=== PATIENT | male | born 1965 | race Caucasian/White ===

== ENCOUNTER 2016-10-03 14:16 | Emergency (ER) | payer OTHER ==
[~2016-10-03] VITALS: Ht 182.9 cm; Wt 57.0 kg
[~2016-10-03 14:16] MED LIST: LORT5TAB PO
--- NOTE | 2016-10-03 15:43 | PD ---
HPI Chief Complaint: Psychiatric Symptoms Time Seen by Provider: 15:42 Travel History International Travel<30 days: No Contact w/Intl Traveler<30days: No History of Present Illness HPI 50-year-old male patient presents to the emergency department via [place] police under the Dominguez act. Patient states she was recently told that he had hepatitis C, and now he no longer wants to live. When was to walk in front of traffic. Patient was placed under [employer] act and brought in for evaluation and treatment. Patient has no specific acute complaints at this time. Patient has history of recurrent MRSA as well but nothing currently. He was just released from [facility] after medical treatment that establishment. He currently has no known drug allergies. He is intoxicated. [facility] Past Medical History Diminished Hearing: No Hepatitis: Yes ("C") Hypertension: Yes Immunizations Current: Yes Past Surgical History Abdominal Surgery: Yes (HERNIA REPAIR) Social History Alcohol Use: Yes Tobacco Use: Yes Substance Use: Yes Allergies-Medications (Allergen,Severity, Reaction): Coded Allergies: No Known Allergies (Verified Allergy, Mild, 10/12/07) Reported Meds & Prescriptions Reported Meds & Active Scripts Active Lortab 5/500 (Acetaminophen/Hydrocodone Bitart) 5 Mg/500 Mg Tab 1 Tab PO Q4- 6HPRN FOR PAIN Review of Systems ROS Limitations: Intoxication Except as stated in HPI: all other systems reviewed are Neg General / Constitutional: No: Fever Eyes: No: Visual changes HENT: No: Headaches Cardiovascular: No: Chest Pain or Discomfort Respiratory: No: Shortness of Breath Gastrointestinal: No: Abdominal Pain Genitourinary: No: Dysuria Musculoskeletal: No: Pain Skin: No Rash Neurologic: No: Weakness Psychiatric: No: Depression Endocrine: No: Polydipsia Hematologic/Lymphatic: No: Easy Bruising Physical Exam Exam Limitations: Intoxication Narrative GENERAL: Patient appears intoxicated but in no acute distress. He is talkative and pleasant. SKIN: Warm and dry. Normal color. Normal turgor. No active cellulitic lesions noted. Patient has scarring to both anterior thighs HEAD: Atraumatic. Normocephalic. EYES: Pupils equal and round. No scleral icterus. No injection or drainage. ENT: No nasal bleeding or discharge. Mucous membranes pink and moist. Thanks is clear. Airway is patent. NECK: Trachea midline. Upon nontender. CARDIOVASCULAR: Regular rate and rhythm. RESPIRATORY: No accessory muscle use. Clear to auscultation. Breath sounds equal bilaterally. GASTROINTESTINAL: Abdomen soft, non-tender, nondistended. Hepatic and splenic margins not palpable. MUSCULOSKELETAL: Extremities without clubbing, cyanosis, or edema. No obvious deformities. NEUROLOGICAL: Awake and alert. No obvious cranial nerve deficits. Motor grossly within normal limits. Five out of 5 muscle strength in the arms and legs. Normal speech. PSYCHIATRIC: Appropriate mood and affect; insight and judgment normal. Data Data Last Documented VS Vital Signs Date Time Temp Pulse Resp B/P Pulse Ox O2 Delivery O2 Flow Rate FiO2 10/03/16 15:46 98.4 75 16 129/72 Orders Complete Blood Count With Diff (10/03/16 15:43) Comprehensive Metabolic Panel (10/03/16 15:43) Urinalysis - C+S If Indicated (10/03/16 15:43) Psych Screen (10/03/16 15:43) Drug Screen, Random Urine (10/03/16 15:43) Alcohol (Ethanol) (10/03/16 15:43) Alcohol Withdrawal Asmt-Ciwa Q4HX18 (10/03/16 15:43) Flumazenil Inj (Romazicon Inj) (10/03/16 15:45) Lorazepam (Ativan) (10/03/16 15:45) Lorazepam Inj (Ativan Inj) (10/03/16 15:45) Lorazepam (Ativan) (10/03/16 15:45) Lorazepam Inj (Ativan Inj) (10/03/16 15:45) Lorazepam Inj (Ativan Inj) (10/03/16 15:45) Lorazepam Inj (Ativan Inj) (10/03/16 15:45) Labs Laboratory Tests Test 10/03/16 10/03/16 15:50 16:00 Urine Color YELLOW Urine Turbidity CLEAR Urine pH 6.0 Urine Specific [place] 1.007 Urine Protein NEG mg/dL Urine Glucose (UA) NEG mg/dL Urine Ketones NEG mg/dL Urine Occult Blood NEG Urine Nitrite NEG Urine Bilirubin NEG Urine Urobilinogen LESS THAN 2.0 MG/DL Urine Leukocyte Esterase NEG Urine WBC LESS THAN 1 /hpf Urine Squamous Epithelial <1 /hpf Cells Urine Transitional Epithelial <1 /hpf Cells Microscopic Urinalysis Comment CULT NOT INDICATED White Blood Count 4.8 TH/MM3 Red Blood Count 3.76 MIL/MM3 Hemoglobin 14.5 GM/DL Hematocrit 41.0 % Mean Corpuscular Volume 109.1 FL Mean Corpuscular Hemoglobin 38.4 PG Mean Corpuscular Hemoglobin 35.2 % Concent Red Cell Distribution Width 13.9 % Platelet Count 78 TH/MM3 Mean Platelet Volume 8.6 FL Neutrophils (%) (Auto) 29.3 % Lymphocytes (%) (Auto) 56.5 % Monocytes (%) (Auto) 11.7 % Eosinophils (%) (Auto) 1.6 % Basophils (%) (Auto) 0.9 % Neutrophils # (Auto) 1.4 TH/MM3 Lymphocytes # (Auto) 2.7 TH/MM3 Monocytes # (Auto) 0.6 TH/MM3 Eosinophils # (Auto) 0.1 TH/MM3 Basophils # (Auto) 0.0 TH/MM3 CBC Comment AUTO DIFF Differential Comment AUTO DIFF CONFIRMED Platelet Estimate LOW Sodium Level 136 MEQ/L Potassium Level 4.0 MEQ/L Chloride Level 100 MEQ/L Carbon Dioxide Level 26.1 MEQ/L Anion Gap 10 MEQ/L Blood Urea Nitrogen 8 MG/DL Creatinine 0.59 MG/DL Estimat Glomerular Filtration 145 ML/MIN Rate Random Glucose 76 MG/DL Calcium Level 9.0 MG/DL Total Bilirubin 0.6 MG/DL Aspartate Amino Transf 203 U/L (AST/SGOT) Alanine Aminotransferase 91 U/L (ALT/SGPT) Alkaline Phosphatase 88 U/L Total Protein 8.1 GM/DL Albumin 3.5 GM/DL Ethyl Alcohol Level 334 MG/DL [facility] Medical Decision Making Medical Screen Exam Complete: Yes Emergency Medical Condition: Yes Medical Record Reviewed: Yes Differential Diagnosis Dominguez act. Depression. Alcohol abuse. Hepatitis C. Suicidal ideation. Narrative Course Patient is intoxicated but in no acute distress. Psychiatric labs ordered per protocol. CBC is unremarkable. CMP is significant for AST of 203 and ALT of 91. Otherwise no significant findings. Serum alcohol is 334 at 1600 hrs. Urinalysis is unremarkable. CIWA protocol is put in place. Patient is given a meal. Patient is medically clear for psychiatric evaluation. Diagnosis Primary Impression: Medical clearance for psychiatric admission Additional Impressions: Alcohol intoxication Qualified Code: F10.920 - Alcoholic intoxication without complication Suicidal ideation Condition: Stable Kyle Mobley Oct 03, 2016 15:43
[2016-10-03] MEDS ORDERED: LORazepam 2 MG/ML VIAL IV PUSH PRN ×4 (15:45)
[2016-10-03] MEDS ORDERED: FLUMAZENIL 0.5 MG/5 ML VIAL IV PUSH PRN (15:45)
[2016-10-03] MEDS ORDERED: LORazepam 1 MG TAB PO PRN (15:45)
[2016-10-03 15:46] VITALS: BP 129/72; PULSE 75; RESP 16; TEMP 98.4
[2016-10-03 16:47] LABS: AUTOMATED NEUTROPHIL # 1.4 TH/MM3 (1.8-7.7); BASOPHIL % 0.9 % (0.0-2.0); EOSINOPHIL # 0.1 TH/MM3 (0-0.4); EOSINOPHIL % 1.6 % (0.0-4.0); LYMPH % 56.5 % (9.0-44.0); LYMPHOCYTE # 2.7 TH/MM3 (1.0-4.8); MEAN CELL VOLUME 109.1 FL (80.0-100.0); MEAN CORPUSCULAR HEMOGLOBIN 38.4 PG (27.0-34.0); MEAN CORPUSCULAR HGB CONC 35.2 % (32.0-36.0); MONO % 11.7 % (0.0-8.0); NEUT % 29.3 % (16.0-70.0); PLATELET COUNT 78 TH/MM3 (150-450); RED BLOOD COUNT 3.76 MIL/MM3 (4.50-5.90); RED CELL DISTRIBUTION WIDTH 13.9 % (11.6-17.2); WHITE BLOOD COUNT 4.8 TH/MM3 (4.0-11.0)
[2016-10-03 16:50] LABS: HEMO FLAGS AUTO DIFF
[2016-10-03 16:53] LABS: BLOOD, URINE NEG (NEG); COMMENT (UR) CULT NOT INDICATED; CULTURE IF INDICATED CULT NOT INDICATED; GLUCOSE,URINE NEG (NEG); KETONE, URINE NEG (NEG); NITRITE,URINE NEG (NEG); SQUAMOUS EPITHELIAL CELL URINE <1 /hpf (0-5); TRANSITIONAL EPI CELLS, URINE <1 /hpf; URINE COLOR YELLOW (YELLW/STRAW)
[2016-10-03 17:17] LABS: ANION GAP 10 MEQ/L (5-15); AST (GOT) 203 U/L (15-37); BICARBONATE 26.1 MEQ/L (21.0-32.0); BLOOD UREA NITROGEN 8 MG/DL (7-18); CHLORIDE 100 MEQ/L (98-107); GLOMERULAR FILTRATION RATE 145 ML/MIN (>89); SODIUM (NA) 136 MEQ/L (136-145)
[2016-10-03 17:23] LABS: ALKALINE PHOSPHATASE 88 U/L (45-117); ALT (GPT) 91 U/L (12-78); TOTAL BILIRUBIN ADULT 0.6 MG/DL (0.2-1.0)
[2016-10-03 17:24] LABS: PLATELET ESTIMATE SMEAR LOW (NORMAL); SCAN/DIFF AUTO DIFF CONFIRMED
[2016-10-03 17:30] LABS: ALCOHOL 334 MG/DL (0-5)
[2016-10-04 07:15] VITALS: BP 143/82; PULSE 71; RESP 16; O2SAT 96
[2016-10-04 10:30] VITALS: BP 141/83; PULSE 71; RESP 18
[2016-10-04] MEDS: LORazepam 2 MG TAB PO PRN ×2 (10:30→12:20)
--- NOTE | 2016-10-04 14:01 | PD ---
History of Present Illness Chief Complaint: Psychiatric Symptoms Time Seen by Provider: 13:30 Travel History International Travel<30 Days: No Contact w/Intl Traveler<30days: No Known affected area: No Legal Status Legal Status: Dominguez Act Dominguez Act Signed By: Danielito Aden History of Present Illness: History of Present Illness HPI 50-year-old male with history of alcohol dependence who presents to the emergency department under the Dominguez act initiated by VERNA. Patient states she was recently told that he had hepatitis C, and now he no longer wants to live and would walk in front of traffic. he did not make any attempt at harming himself. He is intoxicated with BAL of 334 EMR is reviewed. he has several ed visits for alcohol related issues. No inpatient hospitalizations. Patient is allowed to sober up in safe environment. This morning he is alert adn oriented. he is clinically sober. He states that he drinks every day and has been doing so " for years". He has no intention of abstaining from use of alcohol. He reports he was arrested approximately 6 months ago and was sent to [facility] for detox. " I drank the next day I was home". The patient with no psychosis and no rudolph. No suicidal or homicidal ideation .He indicates that he has a friend by the [place] " that watches over me and helps to keep me safe". PFSH Past Medical History Diminished Hearing: No Hepatitis: Yes ("C") Hypertension: Yes Immunizations Current: Yes Past Surgical History Abdominal Surgery: Yes (HERNIA REPAIR) Psychiatric History Psychiatric History Hx Psychiatric Treatment: NONE History of Inpatient Treatment: No Guns or firearms in home: No Social History Single male. Lives in the [facility] in [facility] [place]. works side jobs. Has one daughter in the area. Hx Alcohol Use: Yes Hx Tobacco Use: Yes Hx Substance Use: Yes Substance Use Type: Alcohol Hx of Substance Use Treatment: Yes (Multiple detox visits. ) Family Psychiatric History Negative Allergies-Medications (Allergen,Severity, Reaction): Coded Allergies: No Known Allergies (Verified Allergy, Mild, 10/12/07) Reported Meds & Prescriptions Reported Meds & Active Scripts Active Lortab 5/500 (Acetaminophen/Hydrocodone Bitart) 5 Mg/500 Mg Tab 1 Tab PO Q4- 6HPRN FOR PAIN Review of Systems Constitutional: COMPLAINS OF: Weight loss Gastrointestinal: COMPLAINS OF: Nausea Exam Alert: Yes [place]: Person (ox4) Mood: Calm Affect: Appropriate Speech: Clear, Logical Eye Contact: Normal Memory Intact: Comment (no impairmetn) Hallucinations: Other (negative) Delusions: No Suicidal: Ideation (Negative) Homicidal: Ideation (Negative) Insight/Judgement Poor. Poor MDM Medical Decision Making Medical Record Reviewed: Yes Assessment/Plan 50-year-old male with history of alcohol dependence who presents to the emergency department under the Dominguez act initiated by VERNA. Patient states she was recently told that he had hepatitis C, and now he no longer wants to live and would walk in front of traffic. Patient intoxicated at the time he made statements. Patient was allowed to sober up clinically and was placed under CIWA protocol.At this time he is clinically sober.No suicidal l or homicidal plan, ideation, intent Has a friend who is supportive. He is counseled on abstinence and encouraged AA attendance. Orders Complete Blood Count With Diff (10/03/16 15:43) Comprehensive Metabolic Panel (10/03/16 15:43) Urinalysis - C+S If Indicated (10/03/16 15:43) Psych Screen (10/03/16 15:43) Drug Screen, Random Urine (10/03/16 15:43) Alcohol (Ethanol) (10/03/16 15:43) Alcohol Withdrawal Asmt-Ciwa Q4HX18 (10/03/16 15:43) Flumazenil Inj (Romazicon Inj) (10/03/16 15:45) Lorazepam (Ativan) (10/03/16 15:45) Lorazepam Inj (Ativan Inj) (10/03/16 15:45) Lorazepam (Ativan) (10/03/16 15:45) Lorazepam Inj (Ativan Inj) (10/03/16 15:45) Lorazepam Inj (Ativan Inj) (10/03/16 15:45) Lorazepam Inj (Ativan Inj) (10/03/16 15:45) Diet Regular Basic (10/03/16 Dinner) Diet Regular Basic (10/04/16 Breakfast) Diet Regular Basic (10/04/16 Lunch) Results Vital Signs Date Time Temp Pulse Resp B/P Pulse Ox O2 Delivery O2 Flow Rate FiO2 10/04/16 10:30 71 18 141/83 Room Air 10/04/16 07:15 71 16 143/82 96 Room Air 10/03/16 15:46 98.4 75 16 129/72 Laboratory Tests Test 10/03/16 10/03/16 15:50 16:00 Urine Color YELLOW Urine Turbidity CLEAR Urine pH 6.0 Urine Specific [place] 1.007 Urine Protein NEG Urine Glucose (UA) NEG Urine Ketones NEG Urine Occult Blood NEG Urine Nitrite NEG Urine Bilirubin NEG Urine Urobilinogen LESS THAN 2.0 Urine Leukocyte Esterase NEG Urine WBC LESS THAN 1 Urine Squamous Epithelial <1 Cells Urine Transitional Epithelial <1 Cells Microscopic Urinalysis Comment CULT NOT INDICATED Urine Opiates Screen NEG Urine Barbiturates Screen NEG Urine Amphetamines Screen NEG Urine Benzodiazepines Screen NEG Urine Cocaine Screen NEG Urine Cannabinoids Screen NEG White Blood Count 4.8 Red Blood Count 3.76 Hemoglobin 14.5 Hematocrit 41.0 Mean Corpuscular Volume 109.1 Mean Corpuscular Hemoglobin 38.4 Mean Corpuscular Hemoglobin 35.2 Concent Red Cell Distribution Width 13.9 Platelet Count 78 Mean Platelet Volume 8.6 Neutrophils (%) (Auto) 29.3 Lymphocytes (%) (Auto) 56.5 Monocytes (%) (Auto) 11.7 Eosinophils (%) (Auto) 1.6 Basophils (%) (Auto) 0.9 Neutrophils # (Auto) 1.4 Lymphocytes # (Auto) 2.7 Monocytes # (Auto) 0.6 Eosinophils # (Auto) 0.1 Basophils # (Auto) 0.0 CBC Comment AUTO DIFF Differential Comment AUTO DIFF CONFIRMED Platelet Estimate LOW Sodium Level 136 Potassium Level 4.0 Chloride Level 100 Carbon Dioxide Level 26.1 Anion Gap 10 Blood Urea Nitrogen 8 Creatinine 0.59 Estimat Glomerular Filtration 145 Rate Random Glucose 76 Calcium Level 9.0 Total Bilirubin 0.6 Aspartate Amino Transf 203 (AST/SGOT) Alanine Aminotransferase 91 (ALT/SGPT) Alkaline Phosphatase 88 Total Protein 8.1 Albumin 3.5 Ethyl Alcohol Level 334 Diagnosis Primary Impression: Alcohol dependence Additional Impressions: Alcohol intoxication Medical clearance for psychiatric admission Psychiatrically Cleared: Yes Departure Forms: Tests/Procedures Patient Instructions: General Instructions, Alcohol Intoxication (ED), Abuse of Alcohol (ED), Alcohol Dependence (ED) Additional Instructions: DISCHARGE HOME DIAGNOSIS ALCOHOL DEPENDENCE AND ABUSE FOLLOW-UP WITH [facility] NEEDED FOR DETOX RETURN TO ED FOR WORSENING PROBLEMS Med/ Other Pt Specific Info: No Meds Exist/No RX given Disposition: 01 DISCHARGE HOME Condition: Stable Problem Qualifiers Primary Impression: Alcohol dependence Qualified Code: F10.220 - Alcohol dependence with uncomplicated intoxication Additional Impressions: Alcohol intoxication Qualified Code: F10.920 - Alcoholic intoxication without complication Savanah Denise Oct 04, 2016 14:01
[2016-10-04 14:53] VITALS: BP 140/68; PULSE 73; RESP 20
[2016-10-04 14:54] VITALS: BP 140/63
== END 2016-10-04 15:19 | disposition home or self-care (01) ==
LOC: NEPD 14:16 → NEPJ 10-04 15:19
DX: F10.229 Alcohol dependence with intoxication, unspecified (principal); B19.20 Unspecified viral hepatitis C without hepatic coma; I10 Essential (primary) hypertension; Z72.0 Tobacco use; Z79.899 Other long term (current) drug therapy
CPT/HCPCS: 80053; 80307; 81001; 85025; 96374

== ENCOUNTER 2017-03-30 09:24 | Emergency (ER) | payer SELFPAY ==
[~2017-03-30] VITALS: Ht 177.8 cm; Wt 80.0 kg
[2017-03-30 09:38] VITALS: BP 116/64; PULSE 108; RESP 20; TEMP 98.2; O2SAT 99
--- NOTE | 2017-03-30 09:38 | PD ---
HPI Chief Complaint: [place] Act/Intoxication Time Seen by Provider: 09:32 Travel History International Travel<30 days: No Contact w/Intl Traveler<30days: No History of Present Illness HPI 51-year-old homeless gentleman presents to the emergency department via police under the Dominguez act for reports of public intoxication and threatening other homeless [place] residents with bodily harm. Patient denies that he would hurt anyone, and/or suicidal ideation. He is heavily intoxicated with alcohol. He has no medical complaints. He has no known drug allergies. PFS Past Medical History Diminished Hearing: No Hepatitis: Yes ("C") Hypertension: Yes Immunizations Current: Yes Past Surgical History Abdominal Surgery: Yes (HERNIA REPAIR) Social History Alcohol Use: Yes Tobacco Use: Yes Substance Use: Yes Allergies-Medications (Allergen,Severity, Reaction): Coded Allergies: No Known Allergies (Verified Allergy, Mild, 03/30/17) Reported Meds & Prescriptions Reported Meds & Active Scripts Active No Active Prescriptions or Reported Medications Review of Systems ROS Limitations: Intoxication, Poor Historian Except as stated in HPI: all other systems reviewed are Neg General / Constitutional: No: Fever Eyes: No: Visual changes HENT: No: Headaches Cardiovascular: No: Chest Pain or Discomfort Respiratory: No: Shortness of Breath Gastrointestinal: No: Abdominal Pain Genitourinary: No: Dysuria Musculoskeletal: No: Pain Skin: No Rash Neurologic: No: Weakness Psychiatric: No: Depression Endocrine: No: Polydipsia Hematologic/Lymphatic: No: Easy Bruising Physical Exam Exam Limitations: Intoxication, Poor Historian Narrative GENERAL: Patient appears disheveled and intoxicated, but in no obvious distress. He is cooperative with nursing staff. SKIN: Warm and dry. Normal color. Decreased turgor with tenting present. HEAD: Atraumatic. Normocephalic. EYES: Pupils equal and round. No scleral icterus. No injection or drainage. ENT: No nasal bleeding or discharge. Mucous membranes pink and moist. Teeth are in poor repair but otherwise no acute findings. Oropharynx is clear. Airway is patent NECK: Trachea midline. Supple and nontender. CARDIOVASCULAR: Regular rate and rhythm. No murmurs gallops or rubs. RESPIRATORY: No accessory muscle use. Clear to auscultation. Breath sounds equal bilaterally. GASTROINTESTINAL: Abdomen soft, non-tender, nondistended. Hepatic and splenic margins not palpable. MUSCULOSKELETAL: Extremities without clubbing, cyanosis, or edema. No obvious deformities. NEUROLOGICAL: Awake and alert. No obvious cranial nerve deficits. Motor grossly within normal limits. Five out of 5 muscle strength in the arms and legs. Normal speech. PSYCHIATRIC: Appropriate mood and affect; insight and judgment normal. Data Data Last Documented VS Vital Signs Date Time Temp Pulse Resp B/P (MAP) Pulse Ox O2 Delivery O2 Flow Rate FiO2 03/30/17 15:30 64 16 116/82 (93) 97 Room Air 03/30/17 09:38 98.2 Orders Orders Complete Blood Count With Diff (03/30/17 09:33) Comprehensive Metabolic Panel (03/30/17 09:33) Thyroid Stimulating Hormone (03/30/17 09:33) Urinalysis - C+S If Indicated (03/30/17 09:33) Sodium Chloride 0.9% Flush (Ns Flush) (03/30/17 09:45) Haloperidol Inj (Haldol Inj) (03/30/17 09:45) Lorazepam Inj (Ativan Inj) (03/30/17 09:45) Drug Screen, Random Urine (03/30/17 09:33) Alcohol (Ethanol) (03/30/17 09:33) Diphenhydramine Inj (Benadryl Inj) (03/30/17 09:45) Diphenhydramine Inj (Benadryl Inj) (03/30/17 09:45) Lorazepam Inj (Ativan Inj) (03/30/17 09:45) Haloperidol Inj (Haldol Inj) (03/30/17 09:45) Ondansetron Inj (Zofran Inj) (03/30/17 09:45) Thiamine Inj (Thiamine Inj) (03/30/17 09:45) Sodium Chlor 0.9% 1000 Ml Inj (Ns 1000 M (03/30/17 09:45) Alcohol Withdrawal Asmt-Ciwa Q4HX18 (03/30/17 09:51) Flumazenil Inj (Romazicon Inj) (03/30/17 10:00) Lorazepam (Ativan) (03/30/17 10:00) Lorazepam Inj (Ativan Inj) (03/30/17 10:00) Lorazepam (Ativan) (03/30/17 10:00) Lorazepam Inj (Ativan Inj) (03/30/17 10:00) Lorazepam Inj (Ativan Inj) (03/30/17 10:00) Lorazepam Inj (Ativan Inj) (03/30/17 10:00) Sodium Chlor 0.9% 1000 Ml Inj (Ns 1000 M (03/30/17 11:30) Ed Discharge Order (03/30/17 16:40) Labs Laboratory Tests Test 03/30/17 10:15 03/30/17 14:15 White Blood Count 11.2 TH/MM3 Red Blood Count 3.96 MIL/MM3 Hemoglobin 15.3 GM/DL Hematocrit 42.6 % Mean Corpuscular Volume 107.4 FL Mean Corpuscular Hemoglobin 38.7 PG Mean Corpuscular Hemoglobin Concent 36.0 % Red Cell Distribution Width 12.9 % Platelet Count 154 TH/MM3 Mean Platelet Volume 8.1 FL Neutrophils (%) (Auto) 36.6 % Lymphocytes (%) (Auto) 52.1 % Monocytes (%) (Auto) 9.1 % Eosinophils (%) (Auto) 0.7 % Basophils (%) (Auto) 1.5 % Neutrophils # (Auto) 4.1 TH/MM3 Lymphocytes # (Auto) 5.8 TH/MM3 Monocytes # (Auto) 1.0 TH/MM3 Eosinophils # (Auto) 0.1 TH/MM3 Basophils # (Auto) 0.2 TH/MM3 CBC Comment AUTO DIFF Differential Total Cells Counted 100 Neutrophils % (Manual) 46 % Lymphocytes % 44 % Monocytes % 7 % Basophils % 3 % Neutrophils # (Manual) 5.2 TH/MM3 Differential Comment FINAL DIFF MANUAL Platelet Estimate NORMAL Platelet Morphology Comment NORMAL Spherocytes OCC Blood Urea Nitrogen 24 MG/DL Creatinine 0.81 MG/DL Random Glucose 49 MG/DL Total Protein 8.9 GM/DL Albumin 4.2 GM/DL Calcium Level 10.1 MG/DL Alkaline Phosphatase 63 U/L Aspartate Amino Transf (AST/SGOT) 83 U/L Alanine Aminotransferase (ALT/SGPT) 56 U/L Total Bilirubin 0.5 MG/DL Sodium Level 140 MEQ/L Potassium Level 4.0 MEQ/L Chloride Level 106 MEQ/L Carbon Dioxide Level 18.4 MEQ/L Anion Gap 16 MEQ/L Estimat Glomerular Filtration Rate 100 ML/MIN Thyroid Stimulating Hormone 3rd Gen 1.410 uIU/ML Ethyl Alcohol Level 329 MG/DL Urine Color LIGHT-YELLOW Urine Turbidity CLEAR Urine pH 5.5 Urine Specific [place] 1.007 Urine Protein NEG mg/dL Urine Glucose (UA) NEG mg/dL Urine Ketones TRACE mg/dL Urine Occult Blood NEG Urine Nitrite NEG Urine Bilirubin NEG Urine Urobilinogen LESS THAN 2.0 MG/DL Urine Leukocyte Esterase NEG Urine RBC LESS THAN 1 /hpf Urine WBC 1 /hpf Urine Squamous Epithelial Cells <1 /hpf Microscopic Urinalysis Comment CULT NOT INDICATED Urine Opiates Screen NEG Urine Barbiturates Screen NEG Urine Amphetamines Screen NEG Urine Benzodiazepines Screen NEG Urine Cocaine Screen NEG Urine Cannabinoids Screen NEG MDM Medical Decision Making Medical Screen Exam Complete: Yes Emergency Medical Condition: Yes Medical Record Reviewed: Yes Differential Diagnosis Intoxication. Dominguez act. Aggressive behavior. Narrative Course Patient is intoxicated but appears medically stable at time of exam per Labs ordered per psychiatric protocol. IV access is obtained the patient is given 1 mg lorazepam IV as well as 2 mg Haldol IV as well as 50 mg diphenhydramine IV. Patient is given 1000 mL normal saline bolus as well as 100 mg thiamine IV. CBC shows WBC of 11.2, otherwise no significant findings. Chemistries significant for carbon dioxide of 18.4, anion gap of 16, BUN of 24, creatinine is 0.81 Glucose is low at 49, AST 83, total protein 8.9. Patient is given to orange juices for his sugar. Serum alcohol is 329. Patient is placed on the CIWA protocol. 1620 hrs. patient is alert and awake and eating his lunch. Blood sugar previous to lunch was 94. Dr. Garcia went to interview the patient to perhaps lift his Dominguez act. Patient is felt to be stable for discharge, and Dr. Garcia lifted the Dominguez act. Patient is referred to [facility] for follow-up. Diagnosis Primary Impression: Alcohol intoxication Qualified Codes: F10.920 - Alcohol use, unspecified with intoxication, uncomplicated Referrals: [facility] Patient Instructions: Abuse of Alcohol (ED), General Instructions Med/Other Pt SpecificInfo: No Meds Exist/No RX given Scripts No Active Prescriptions or Reported Meds Disposition: DISCHARGE HOME Condition: Stable Kyle Mobley Mar 30, 2017 09:38
[2017-03-30] MEDS ORDERED: LORazepam 2 MG/ML VIAL IM ONE (09:45)
[2017-03-30] MEDS ORDERED: diphenhydrAMINE HCL 50 MG/ML VIAL IV PUSH ONE (09:45)
[2017-03-30] MEDS ORDERED: HALOPERIDOL LACTATE 5 MG/ML AMP IM ONE (09:45)
[2017-03-30] MEDS ORDERED: HALOPERIDOL LACTATE 5 MG/ML AMP IV PUSH ONE (09:45)
[2017-03-30] MEDS ORDERED: SODIUM CHLORIDE 0.9% FLUSH 10 ML FLUSH IVF PRN (09:45)
[2017-03-30] MEDS ORDERED: LORazepam 2 MG/ML VIAL IV PUSH ONE (09:45)
[2017-03-30] MEDS ORDERED: THIAMINE INJ 100 MG in SODIUM CHLORIDE 0.9% INJ 100 ML IV ONE (09:45)
[2017-03-30] MEDS ORDERED: SODIUM CHLOR 0.9% 1000 ML INJ 1,000 ML IV ONE ×2 (09:45→11:30)
[2017-03-30] MEDS ORDERED: ONDANSETRON HCL 4 MG/2 ML VIAL IV PUSH ONE (09:45)
[2017-03-30] MEDS ORDERED: diphenhydrAMINE HCL 50 MG/ML VIAL IM ONE (09:45)
[2017-03-30] MEDS ORDERED: LORazepam 2 MG TAB PO PRN (10:00)
[2017-03-30] MEDS ORDERED: LORazepam 2 MG/ML VIAL IV PUSH PRN ×4 (10:00)
[2017-03-30] MEDS ORDERED: LORazepam 1 MG TAB PO PRN (10:00)
[2017-03-30] MEDS ORDERED: FLUMAZENIL 0.5 MG/5 ML VIAL IV PUSH PRN (10:00)
[2017-03-30 10:47] LABS: AUTOMATED NEUTROPHIL # 4.1 TH/MM3 (1.8-7.7); BASOPHIL # 0.2 TH/MM3 (0-0.2); BASOPHIL % 1.5 % (0.0-2.0); EOSINOPHIL # 0.1 TH/MM3 (0-0.4); EOSINOPHIL % 0.7 % (0.0-4.0); HEMATOCRIT 42.6 % (39.0-51.0); HEMOGLOBIN 15.3 GM/DL (13.0-17.0); LYMPH % 52.1 % (9.0-44.0); LYMPHOCYTE # 5.8 TH/MM3 (1.0-4.8); MEAN CELL VOLUME 107.4 FL (80.0-100.0); MEAN CORPUSCULAR HEMOGLOBIN 38.7 PG (27.0-34.0); MEAN PLATELET VOLUME 8.1 FL (7.0-11.0); MONO % 9.1 % (0.0-8.0); NEUT % 36.6 % (16.0-70.0); PLATELET COUNT 154 TH/MM3 (150-450); RED BLOOD COUNT 3.96 MIL/MM3 (4.50-5.90); RED CELL DISTRIBUTION WIDTH 12.9 % (11.6-17.2); WHITE BLOOD COUNT 11.2 TH/MM3 (4.0-11.0)
[2017-03-30 11:29] VITALS: BP 86/54; PULSE 63; RESP 20; O2SAT 97
[2017-03-30 11:38] LABS: ALBUMIN 4.2 GM/DL (3.4-5.0); ALKALINE PHOSPHATASE 63 U/L (45-117); ALT (GPT) 56 U/L (12-78); AST (GOT) 83 U/L (15-37); BICARBONATE 18.4 MEQ/L (21.0-32.0); BLOOD UREA NITROGEN 24 MG/DL (7-18); CALCIUM 10.1 MG/DL (8.5-10.1); CHLORIDE 106 MEQ/L (98-107); CREATININE 0.81 MG/DL (0.60-1.30); GLOMERULAR FILTRATION RATE 100 ML/MIN (>89); SODIUM (NA) 140 MEQ/L (136-145); TOTAL BILIRUBIN ADULT 0.5 MG/DL (0.2-1.0); TOTAL PROTEIN 8.9 GM/DL (6.4-8.2)
[2017-03-30 11:43] LABS: GLUCOSE,RANDOM 49 MG/DL (74-106)
[2017-03-30 12:14] LABS: BASOPHILS 3 % (0-2); LYMPHOCYTES 44 % (9-44); MONOCYTES 7 % (0-8); NEUTROPHIL # MANUAL DIFF 5.2 TH/MM3 (1.8-7.7); POLYS (SEG NEUTROPHILS) 46 % (16-70)
[2017-03-30 12:19] LABS: SPHEROCYTES OCC (NORMAL)
[2017-03-30 12:48] VITALS: BP 125/77; PULSE 65; RESP 20; O2SAT 99
[2017-03-30 15:16] LABS: BILIRUBIN, URINE NEG (NEG); BLOOD, URINE NEG (NEG); GLUCOSE,URINE NEG (NEG); KETONE, URINE TRACE mg/dL (NEG); NITRITE,URINE NEG (NEG); PH, URINE 5.5 (5.0-8.5); SQUAMOUS EPITHELIAL CELL URINE <1 /hpf (0-5); URINE COLOR LIGHT-YELLOW (YELLW/STRAW); URINE LEUKOCYTE ESTERASE NEG (NEG)
[2017-03-30 15:30] VITALS: BP 116/82; PULSE 64; RESP 16; O2SAT 97
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
== END 2017-03-30 17:45 | disposition home or self-care (01) ==
LOC: NEPD 09:24
DX: F10.920 Alcohol use, unspecified with intoxication, uncomplicated (principal); Y90.8 Blood alcohol level of 240 mg/100 ml or more; Z59.0 Homelessness; Z72.0 Tobacco use
CPT/HCPCS: 80053; 80307; 81001; 84443; 85007; 85027; 96361; 96365; 96375; 99284; J1200; J1630; J2060; J2405; J3411; J7030

== ENCOUNTER 2017-07-08 15:06 | Emergency (ER) | payer OTHER ==
[~2017-07-08] VITALS: Ht 177.8 cm; Wt 80.0 kg
[2017-07-08 15:18] VITALS: BP 123/69; PULSE 97; RESP 20; TEMP 97; O2SAT 97
--- NOTE | 2017-07-08 15:36 | PD ---
HPI Chief Complaint: Alcohol/Drug Intoxication Time Seen by Provider: 15:36 Travel History International Travel<30 days: No Contact w/Intl Traveler<30days: No Traveled to known affect area: No History of Present Illness HPI 51-year-old male came to the emergency room brought in as much men's act because he was noticed to be wavering when he was walking and did not pass a sobriety test by the PD. He was brought in from [facility]. Patient is walking and talking but appears quite intoxicated. Difficult to get much history out of the patient given his intoxicated state. He appears to be a daily drinker. Vital signs are otherwise stable. [facility] Past Medical History Narrative Medical List of his past medical, surgical, social and family history reviewed from the nursing note. Diminished Hearing: No Hepatitis: Yes ("C") Hypertension: Yes Immunizations Current: Yes Past Surgical History Abdominal Surgery: Yes (HERNIA REPAIR) Social History Alcohol Use: Yes (DAILY DRINKER) Tobacco Use: Yes Substance Use: Yes Allergies-Medications (Allergen,Severity, Reaction): Coded Allergies: No Known Allergies (Verified Allergy, Mild, 03/30/17) Comments No known drug allergies. Reported Meds & Prescriptions Reported Meds & Active Scripts Active No Active Prescriptions or Reported Medications Narrative Medication List of his home medications reviewed from the nursing note. Review of Systems ROS Limitations: Intoxication, Altered Mental Status Except as stated in HPI: all other systems reviewed are Neg Physical Exam Exam Limitations: Intoxication, Altered Mental Status Narrative GENERAL: Moderately intoxicated, disheveled SKIN: Focused skin assessment warm/dry. Disheveled HEAD: Atraumatic. Normocephalic. EYES: Pupils equal and round. No scleral icterus. No injection or drainage. ENT: No nasal bleeding or discharge. Mucous membranes pink and moist. NECK: Trachea midline. No JVD. CARDIOVASCULAR: Regular rate and rhythm. No murmur appreciated. RESPIRATORY: No accessory muscle use. Clear to auscultation. Breath sounds equal bilaterally. GASTROINTESTINAL: Abdomen soft, non-tender, nondistended. Hepatic and splenic margins not palpable. MUSCULOSKELETAL: No obvious deformities. No clubbing. No cyanosis. No edema. NEUROLOGICAL: Moderately intoxicated. No obvious cranial nerve deficits. Motor grossly within normal limits. Slurred speech. PSYCHIATRIC: Appropriate mood and affect; insight and judgment normal. Data Data Last Documented VS Vital Signs Date Time Temp Pulse Resp B/P (MAP) Pulse Ox O2 Delivery O2 Flow Rate FiO2 07/08/17 15:18 97.0 97 20 123/69 (87) 97 MDM Medical Decision Making Medical Screen Exam Complete: Yes Emergency Medical Condition: Yes Medical Record Reviewed: Yes Differential Diagnosis Chronic alcohol abuse, acute alcohol intoxication Narrative Course 4:42 PM medically cleared the patient. He will sleep it off until he is clinically sober to be discharged. Procedures EKG Prior to Arrival: No Scripts No Active Prescriptions or Reported Meds Mahendra Díaz MD July 08, 2017 15:36
[2017-07-09] MEDS ORDERED: chlordiazePOXIDE 25 MG CAP PO ONE (00:30)
[2017-07-09 00:57] VITALS: BP 112/64; PULSE 84; RESP 16; O2SAT 96
--- NOTE | 2017-07-09 05:35 | PD ---
Physical Exam Date Seen by Provider: July 09, 2017 Time Seen by Provider: 00:10 Narrative For full history and physical examination please see previous providers note. Data Data Last Documented VS Vital Signs Date Time Temp Pulse Resp B/P (MAP) Pulse Ox O2 Delivery O2 Flow Rate FiO2 07/09/17 00:57 84 16 112/64 (80) 96 Room Air 07/08/17 15:18 97.0 Orders Orders Chlordiazepoxide (Librium) (07/09/17 00:30) Chlordiazepoxide (Librium) (07/09/17 05:45) MDM Medical Record Reviewed: Yes Supervised Visit with TUNG: No Narrative Course Patient was reassessed shortly after midnight, at that time he had been in the emergency department for roughly 8 hours. Patient no longer appeared intoxicated however he had no way to get back to [place]. Due to patient's chronic alcoholism, Librium 50 mg p.o. was ordered. Patient will be allowed to stay in the emergency department until the morning. Patient was aroused at 530, he again appears sober, his speech is clear and requested a bus pass. He will be given additional 10 mg of Librium prior to discharge to avoid DTs. Patient stable for discharge. Diagnosis Primary Impression: Alcohol dependence Qualified Codes: F10.20 - Alcohol dependence, uncomplicated Additional Impression: Alcohol intoxication Qualified Codes: F10.920 - Alcohol use, unspecified with intoxication, uncomplicated Scripts No Active Prescriptions or Reported Meds Augustina Robertson July 09, 2017 05:35
== END 2017-07-09 06:09 | disposition home or self-care (01) ==
LOC: NEPD 15:06
DX: F10.229 Alcohol dependence with intoxication, unspecified (principal); I10 Essential (primary) hypertension; B19.20 Unspecified viral hepatitis C without hepatic coma; Z72.0 Tobacco use
CPT/HCPCS: 99283